=== PATIENT | male | born 1975 | race Caucasian/White ===

== ENCOUNTER 2025-03-23 08:11 | Outpatient (REF) | payer OTHER, SELFPAY ==
--- NOTE | ~2025-03-23 | US_ITS ---
EXAMINATION: US pelvis limited CLINICAL INFORMATION: Right lower quadrant pain for 4 weeks, dull ache, COMPARISON: None available. TECHNIQUE: Grayscale and color Doppler imaging was performed in the right lower quadrant FINDINGS: The appendix is noted just deep to the rectus abdominis musculature in the right lower quadrant. It was noncompressible. Technologist reports sharp pain when compressing over this region. The cross-sectional diameter measured 8-9 mm. No hernia was demonstrated. US/US pelvic limited IMPRESSION: Possible appendicitis: A tubular structure in the right lower quadrant is borderline to mildly enlarged measuring 8-9 mm cross-sectional diameter. It is noncompressible and the patient reported sharp pain when this area was compressed during the ultrasound exam. No hernia was demonstrated in the right lower quadrant. Electronically signed by: Issa Frederick MD 03/23/2025 10:01 AM EDT
--- OUTSIDE RECORDS SUMMARY | 2025-03-23 08:32 | XMS_ITS | Clinical Summary ---
Author Organization [employer] Address [address] [place] [address] Care Team Providers Care Mechanical Design Engineer Name Role Phone Ty Mckinley MD Primary Care Provider [phone] Allergies No known active allergies Medications lisinopriL (Prinivil,Zestri l) 20 mg tabletIndication s:Essential (primary) hypertension TAKE 1 TABLET BY MOUTH 1 (ONE) TIME EACH DAY. 90 tablet 4 Active lisinopriL (Prinivil,Zestri l) 20 mg tabletIndication s:Essential (primary) hypertension TAKE 1 TABLET BY MOUTH 1 TIME EACH DAY. 90 tablet 5 Active metoprolol succinate (Toprol-Xl) 50 mg 24 hr tabletIndication s:Essential (primary) hypertension,PVC 's (premature ventricular contractions) TAKE 1 TABLET BY MOUTH 1 TIME EACH DAY. 90 tablet 5 Active lisinopriL (Prinivil,Zestri l) 20 mg tabletIndication s:Essential (primary) hypertension TAKE 1 TABLET BY MOUTH 1 (ONE) TIME EACH DAY. 90 tablet 5 025 Discontinued metoprolol succinate (Toprol-Xl) 50 mg 24 hr tabletIndication s:Essential (primary) hypertension,PVC 's (premature ventricular contractions) Take 1 tablet (50 mg total) by mouth 1 (one) time each day. 90 tablet 5 025 Discontinued Active Problems Problem Noted Date Diagnosed Date PVC's (premature ventricular contractions) 02/1103/26/2023 Overview (03/26/2023): Last Assessment & Plan: Nearly gone at this time but reduced enough that the patient is quite satisfied with his symptoms we will just leave this dose of the metoprolol alone as it is. I will reevaluate in 4 to 6 months time. Family history of bladder cancer 06/27/2021 Overweight (BMI 25.0-29.9) 05/16/2020 Diverticular disease 10/31/2016 Abnormal results of liver function studies 04/02 Essential (primary) hypertension 04/02/2015 Hyperlipidemia LDL goal <130 04/02/2015 Encounters Date Type Department Care Team Description 03/23/2025 [place] [address] Ty Mckinley MD Essential (primary) hypertension; PVC's (premature ventricular contractions) 03/09/2025 [place] [address] Ty Mckinley MD Essential (primary) hypertension 12/22/[address] [address] Ty Mckinley MD Essential (primary) hypertension; PVC's (premature ventricular contractions) from Last 3 Months Immunizations Immunization Administration Dates Next Due HEPATITIS B, ADULT 01/05/2015 INFLUENZA, RECOMBINANT, QUAD RIVALENT, PRESERVATIVE FREE 06/27/2021,05/16/2020 INFLUENZA, SEASONAL, INJECTABLE 03/29/2014 Influenza (IM) Preservative Free 02/28/2013 Influenza, injectable, quadr ivalent, preservative free 03/26/2023 Pfizer Purple Cap SARS-COV-2 Vaccination 021,10/15/2020,09/21/2020 Tdap 03/26/2023,08/26/2012 Tetanus 11/30/1999 Family History Medical History Relation Name Comments Hypertension Father bladder cancer Father Heart disease Mother Hypertension Mother Thyroid disease Mother Relation Name Status Comments Father Alive Mother Alive Social History Tobacco Use Types Packs/Day Years Used Date Smoking Tobacco: Former Smokeless Tobacco: Never Tobacco Cessation:Counseling Given: Not Answered Alcohol Use Standard Drinks/Week Comments Yes 0 (1 standard drink = 0.6 oz pur e alcohol) AUDIT-C Answer Date Recorded Q1: How often do you have a drink containing alc ohol? Monthly or less 03/26/2023 Q2: How many drinks containi ng alcohol do you have on a typical day when you are drinking? 1 or 2 03/26/2023 Q3: How often do you have si x or more drinks on one occasion? Never 03/26/2023 PHQ-2 Answer Date Recorded Patient Health Questionnaire-2 Score 0 12/14/2024 Exercise Vital Sign Answer Date Recorde d On average, how many days pe r week do you engage in moderate to strenuous exercise (like a brisk walk)? 3 days 09/15/2019 On average, how many minutes do you engage in exercise at this level? 40 min 09/15/2019 PRAPARE - Transportation Answer Date Re corded In the past 12 months, has l ack of transportation kept you from medical appointments or from getting medications? No 03/24/2023 Lack of Transportation (Non-Medical) Not on file 03/24/2023 Housing Stability Vital Sign Answer Rohit e Recorded Unable to Pay for Housing in the Last Year Not o n file 03/24/2023 Number of Places Lived in the Last Year Not on f ile 03/24/2023 In the last 12 months, was t here a time when you did not have a steady place to sleep or slept in a retirement (including now)? No 03/24/2023 Humiliation, Afraid, Rape, and Kick questionnair e Answer Date Recorded Within the last year, have y ou been afraid of your partner or ex-partner? No 12/14/2024 Emotionally Abused Not on file 12/14/2024 Physically Abused Not on file 12/14/2024 Sexually Abused Not on file 12/14/2024 Overall Financial Resource Strain (CARDIA) Answe r Date Recorded How hard is it for you to pa y for the very basics like food, housing, medical care, and heating? Somewhat hard 12/14/2024 Hunger Vital Sign Answer Date Recorded Within the past 12 months, y ou worried that your food would run out before you got the money to buy more. Never true 12/15/19 25 Ran Out of Food in the Last Year Not on file 12/14/2024 PRAPARE - Transportation Answer Date Re corded In the past 12 months, has l ack of transportation kept you from medical appointments or from getting medications? No 12/14/2024 Lack of Transportation (Non-Medical) Not on file 12/14/2024 CAGE-AID Answer Date Recorded Q1: How often do you have a drink containing alc ohol? Monthly or less 03/26/2023 Q2: How many drinks containi ng alcohol do you have on a typical day when you are drinking? 1 or 2 03/26/2023 Q3: How often do you have si x or more drinks on one occasion? Never 03/26/2023 Sex and Gender Information Value Date Recorded Sex Assigned at Not on file Legal Sex Male 12:36 PM EST Gender Identity Not on file Sexual Orientation Not on file Last Filed Vital Signs Vital Sign Reading Time Taken Comments Blood Pressure 130/80 09/23/2023 7:19 AM EDT Pulse 66 09/23/2023 7:19 AM EDT Temperature 36.8 C (98.2 F) 06/27/2021 4:19 PM EST Respiratory Rate 18 09/23/2023 7:19 AM EDT Oxygen Saturation 98% 09/23/2023 7:19 AM EDT Inhaled Oxygen Concentration - - Weight 83.5 kg (184 lb) 09/23/2023 7:19 AM EDT Height 171.5 cm (5' 7.5 ) 03/26/2023 1:44 PM EDT Body Mass Index 28.39 03/26/2023 1:44 PM EDT Plan of Treatment Upcoming Encounters Date Type Department Care Team (Late st Contact Info) Description 06/09/2025 9:30 [place] [address] Ty Mckinley MD [address] [place] [address] cpx Scheduled Orders Name Type Priority Associated Diagnoses Orde r Schedule CBC and differential Lab Routine Encounter for screening and preventative care Essential (primary) hypertension 1 Occurrences starting 11/17/2024 until 11/17/2025 Comprehensive metabolic panel Lab Routine Encounter for screening and preventative care 1 Occurrences starting 11/17/2024 until 11/17/2025 TSH with Reflex to Free T4 Lab Routine Encounter for screening and preventative care Screening for thyroid disorder 1 Occurrences starting 11/17/2024 until 11/17/2025 Lipid Panel with Ratios Lab Routine Encounter for screening and preventative care Hyperlipidemia LDL goal <130 1 Occurrences starting 11/17/2024 until 11/17/2025 Health Maintenance Due Date Last Done Comments CT Colonography 1975 Colonoscopy 1975 Colorectal Cancer Screening 1975 FIT-DNA 1975 FIT 1975 FOBT 1975 Sigmoidoscopy 1975 Annual Physical Exam 03/26/2024 03/26/2023, 06/27/2021, 05/16/2020 COVID-19 Vaccine ( season) 2025 05/22/2021, 10/15/2020, 09/21/2020 Influenza Vaccine (#1) 2025 , 06/27/2021, 05/16/2020, Additional history exists Tdap and Td Vaccines Adult 03/26/2033 03/26/2023, Hepatitis C Screening Completed 06/27/2021 Lipid Panel Discontinued 09/23/2023, 06/02, 05/16/2020, Additional history exists HIB Vaccines Aged Out No longer eligi ble based on patient's age to complete this topic HPV Vaccines (No Doses Required) Completed Hepatitis A Vaccines Aged Out No long er eligible based on patient's age to complete this topic IPV Vaccines Aged Out No longer eligi ble based on patient's age to complete this topic Meningococcal Vaccine Aged Out No veronica martin eligible based on patient's age to complete this topic Pneumococcal Vaccine: Peds (0 to 5 Yrs) and At-Risk Pts (6 to 49 Yrs) Aged Out No longer eligible based on patient's age to complete this topic RSV <20 Months Aged Out No longer teodora gible based on patient's age to complete this topic Procedures Procedure Name Priority Date/Time Associated Diagnosis Comments LIPID PANEL WITH RATIOS Routine 09/23/2023 7:43 AM EDT Well adult exam Hyperlipidemia LDL goal <130 HEPATITIS C ANTIBODY, HIGH RISK SCREENING, W/ RFX TO HCV RNA Routine 06/27/2021 5:03 PM EST Need for hepatitis C screening test from Last 3 Months or Most Recently Relevant to Health Maintenance Results * (ABNORMAL) Lipid Panel (09/23/2023 7:43 AM EDT) Cholesterol 193 <=200 mg/dL 09/23/2023 3:19 PM EDT [facility] Triglycerides 73 <150 mg/dL 09/23/2023 3:19 PM EDT [facility] HDL 42 >40 mg/dL 09/23/2023 3:19 PM EDT [facility] % Total 22 09/23/2023 3:19 PM EDT [facility] LDL Calculated 136(H) <100 mg/dL 09/23/2023 3:19 PM EDT [facility] Cholesterol HDL Ratio 4.6 09/23/2023 3:19 PM EDT [facility] LDL/HDL Ratio 3.2 09/23/2023 3:19 PM EDT [facility] NON HDL CHOLESTEROL 151(H) <130 09/23/2023 3:19 PM EDT [facility] Blood Venous blood / Unknown Venipuncture / Unknown 09/23/2023 7:43 AM EDT 09/23/2023 7:43 AM EDT us Ty Mckinley MD LAB BLOOD ORDERABLES Final Res ult [facility] [id number] [place] [address] * Hepatitis C Antibody, Screening w/ RFX to HCV RNA (06/27/2021 5:03 PM EST) Hep C Antibody, IgG Non-React levon Non-React levon 06/27/2021 8:10 PM EST [facility] Comment: Performed on Siemens Advia Centaur Not infected with HCV, unless recent infection is suspected or other evidence exists to indicate HCV infection. This assay can be affected by patients taking high dose biotin supplements (>5mg/day). An eight hour wait time or washout period is necessary for accurate test results following high doses of biotin Blood Venous blood / Unknown Venipuncture / Unknown 06/27/2021 5:03 PM EST 06/27/2021 5:03 PM EST us Ty Mckinley MD LAB BLOOD ORDERABLES Final Res ult [facility] [id number] [place] [address] from Last 3 Months or Most Recently Relevant to Health Maintenance Insurance [employer] Care Teams Mechanical Design Engineer Relationship Specialty Start Date End Date Ty Mckinley MD [address] [place] [id number] PCP - General 06/06/19
--- OUTSIDE RECORDS SUMMARY | 2025-03-23 08:32 | XMS_ITS | Encounter Summary ---
Author Organization [employer] Address [address] [place] [address] Care Team Providers Care Loss Prevention Leader Name Role Phone Ty Mckinley MD Primary Care Provider [phone] Reason for Visit * Reason Onset Date Comments Med Refill 05/28/2024 Encounter Details Date Type Department Care Team ([facility] st Contact Info) Description 05/28/2024 Refill [facility] Primary Care [place] [phone] Ty Mckinley MD [address] [place] [address] Essential (primary) hypertension; PVC's (premature ventricular contractions) Social History Tobacco Use Types Packs/Day Years Used Date Smoking Tobacco: Former Smokeless Tobacco: Never Alcohol Use Standard Drinks/Week Comments Yes 0 (1 standard drink = 0.6 oz pur e alcohol) Humiliation, Afraid, Rape, and Kick questionnair e Answer Date Recorded Within the last year, have y ou been afraid of your partner or ex-partner? No 03/24/2023 Emotionally Abused Not on file 03/24/2023 Physically Abused Not on file 03/24/2023 Sexually Abused Not on file 03/24/2023 AUDIT-C Answer Date Recorded Q1: How often do you have a drink containing alc ohol? Monthly or less 03/26/2023 Q2: How many drinks containi ng alcohol do you have on a typical day when you are drinking? 1 or 2 03/26/2023 Q3: How often do you have si x or more drinks on one occasion? Never 03/26/2023 Overall Financial Resource Strain (CARDIA) Answe r Date Recorded How hard is it for you to pa y for the very basics like food, housing, medical care, and heating? Somewhat hard 03/24/2023 PHQ-2 Answer Date Recorded Patient Health Questionnaire-2 Score 0 03/26/2023 Exercise Vital Sign Answer Date Recorde d On average, how many days pe r week do you engage in moderate to strenuous exercise (like a brisk walk)? 3 days 09/15/2019 On average, how many minutes do you engage in exercise at this level? 40 min 09/15/2019 Hunger Vital Sign Answer Date Recorded Within the past 12 months, y ou worried that your food would run out before you got the money to buy more. Never true 03/24/20 23 Ran Out of Food in the Last Year Not on file 03/24/2023 PRAPARE - Transportation Answer Date Re corded [...] place to sleep or slept in a long-term (including now)? No 03/24/2023 CAGE-AID Answer Date Recorded Q1: How often [...] on file Sexual Orientation Not on file documented as of this encounter Miscellaneous Notes * Telephone Encounter - Pat Peoples - 06/06/2024 8:17 AM EST Left voicemail third attempt, letter sent. * Telephone Encounter - Pat Peoples - 06/02/2024 8:05 AM EST Left voicemail second attempt. * Telephone Encounter - Pat Peoples - 05/30/2024 8:42 AM EST Left voicemail requesting patient call back to schedule. * Telephone Encounter - Aspen Villa RN - 05/30/2024 7:09 AM EST Refill request, last office visit 09-22, needs an appointment sooner than 12-23, erxd script documented in this encounter Plan of Treatment Upcoming Encounters Date Type Department Care Team (Late st Contact Info) Description 06/09/2025 9:30 [place] [address] Ty Mckinley MD [address] [place] [address] cpx documented as of this encounter Visit Diagnoses Diagnosis Essential (primary) hypertension Unspecified essential hypertension PVC's (premature ventricular contractions) Other premature beats documented in this encounter Additional Health Concerns Assessment Noted Time PHQ-9 Depression Total Score: 0 03/26/20 23 2:25 PM EDT documented as of this encounter Care Teams Loss Prevention Leader Relationship Specialty Start Date End Date Ty Mckinley MD [address] [place] [address] PCP - General 06/06/19 documented as of this encounter
--- OUTSIDE RECORDS SUMMARY | 2025-03-23 08:32 | XMS_ITS | Encounter Summary ---
Author Organization [employer] Address [address] [place] [address] Care Team Providers Care Forestry Patrolman Name Role Phone Ty Mckinley MD Primary Care Provider [phone] Reason for Visit * Reason Comments Med Refill Encounter Details Date Type Department Care Team ([facility] st Contact Info) Description 09/19/2022 Refill [facility] Primary Care [place] [phone] Ty Mckinley MD [address] [place] [address] Essential (primary) hypertension Social History Tobacco Use Types Packs/Day Years Used Date Smoking Tobacco: Former Smokeless Tobacco: Never Alcohol Use Standard Drinks/Week Comments Yes 0 (1 standard drink = 0.6 oz pur e alcohol) AUDIT-C Answer Date Recorded Q1: How often do you have a drink containing alc ohol? Monthly or less 09/14/2019 Q2: How many drinks containi ng alcohol do you have on a typical day when you are drinking? 1 or 2 09/14/2019 Q3: How often do you have si x or more drinks on one occasion? Less than monthly 09/14/2019 PHQ-2 Answer Date Recorded Patient Health Questionnaire-2 Score 0 06/25/2021 Exercise Vital Sign Answer Date Recorde d On average, how many days pe r week do you engage in moderate to strenuous exercise (like a brisk walk)? 3 days 09/15/2019 On average, how many minutes do you engage in exercise at this level? 40 min 09/15/2019 Sex and Gender Information Value Date Recorded Sex Assigned at Not on file Legal Sex Male 12:36 PM EST Gender Identity Not on file Sexual Orientation Not on file documented as of this encounter Miscellaneous Notes * Telephone Encounter - Fabiana Sanchez - 09/22/2022 9:18 AM EDT Left voicemail asking patient to please call back to scheduled med follow up * Telephone Encounter - Aspen Norman LPN - 09/19/2022 5:06 PM EDT PLEASE CALL PT FOR SOONER APPT THEN March. documented in this encounter Plan of Treatment Upcoming Encounters Date Type Department Care Team (Late st Contact Info) Description 06/09/2025 9:30 [place] [address] Ty Mckinley MD [address] [place] [address] cpx documented as of this encounter Visit Diagnoses Diagnosis Essential (primary) hypertension Unspecified essential hypertension documented in this encounter Additional Health Concerns Assessment Noted Time PHQ-9 Depression Total Score: 0 06/25/19 22 2:13 PM EST documented as of this encounter Care Teams Forestry Patrolman Relationship Specialty Start Date End Date Ty Mckinley MD [address] [place] [address] PCP - General 06/06/19 documented as of this encounter
--- OUTSIDE RECORDS SUMMARY | 2025-03-23 08:32 | XMS_ITS | Encounter Summary ---
Author Organization [facility] Address [address] [place] [address] Care Team Providers Care Corner Cutter Machine Operator Name Role Phone Ty Mckinley MD Primary Care Provider [phone] Encounter Details Date Type Department Care Team ([facility] st Contact Info) Description 05/18/2020 Scanned Document [facility] Primary Care [address] [address] Ty Mckinley MD [address] [place], [place] [id number] EKG Social History Tobacco Use Types Packs/Day Years [...] Date Recorded Patient Health Questionnaire-2 Score 0 05/16/2020 Exercise Vital Sign Answer Date Recorde d [...] on file Sexual Orientation Not on file COVID-19 Exposure Response Date Recorded In the last month, have you been in contact with someone who was confirmed or suspected to have Coronavirus / COVID-19? No / Unsure 05/14/2020 1:30 PM EST documented as of this encounter Plan of Treatment Upcoming Encounters Date Type Department Care Team ([facility] st Contact Info) Description 06/09/2025 9:30 [place] [address] Ty Mckinley MD [address] [place], [place] [address] cpx documented as of this encounter Visit Diagnoses Not on filedocumented in this encounter Additional Health Concerns Assessment Noted Time PHQ-9 Depression Total Score: 0 05/16/20 20 9:12 AM EST documented as of this encounter Care Teams Corner Cutter Machine Operator Relationship Specialty Start Date End Date Ty Mckinley MD [address] [place] [address] PCP - General 06/06/19 documented as of this encounter
--- OUTSIDE RECORDS SUMMARY | 2025-03-23 08:32 | XMS_ITS | Encounter Summary ---
Author Organization [employer] [facility] Address [address] [place] [address] Care Team Providers Care Poultry Vaccinator Name Role Phone Ty Mckinley MD Primary Care Provider [phone] Encounter Details Date Type Department Care Team ([facility] st Contact Info) Description 07/31/2020 Scanned Document [facility] Primary Care [address] [address] Ty Mckinley MD [address] [place], [place] [phone] lab customer service Social History Tobacco Use Types Packs/Day Years [...] on file documented as of this encounter Plan of Treatment Upcoming Encounters Date Type Department Care Team (Late st Contact Info) Description 06/09/2025 9:30 AM EST Office Visit [address] [address] Ty Mckinley MD [address] [place] [address] [phone] cpx documented as of this encounter Visit Diagnoses Not on filedocumented in this encounter Additional Health Concerns Assessment Noted Time PHQ-9 Depression Total Score: 0 05/16/20 9:12 AM EST documented as of this encounter Care Teams Poultry Vaccinator Relationship Specialty Start Date End Date Ty Mckinley MD [address] [place] [id number] PCP - General 06/06/19 documented as of this encounter
--- OUTSIDE RECORDS SUMMARY | 2025-03-23 08:32 | XMS_ITS | Encounter Summary ---
Author Organization [employer] Address [address] [place] [address] Care Team Providers Care Licensed Loan Officer Name Role Phone Ty Mckinley MD Primary Care Provider [phone] Reason for Visit * Reason Comments Med Refill Encounter Details Date Type Department Care Team ([facility] Contact Info) Description 03/23/2025 Refill [facility] Primary Care [place] [phone] Ty Mckinley MD [address] [place] [address] Essential (primary) hypertension; PVC's (premature ventricular contractions) [...] Description 06/09/2025 9:30 AM EST Office Visit [address] [address] Ty Mckinley MD [address] [place], [place] [address] cpx documented as of this encounter Visit Diagnoses Diagnosis Essential (primary) hypertension Unspecified essential hypertension PVC's (premature ventricular contractions) Other premature beats documented in this encounter Additional Health Concerns Assessment Noted Time PHQ-9 Depression Total Score: 0 12/15/19 25 9:33 AM EDT documented as of this encounter Care Teams Licensed Loan Officer Relationship Specialty Start Date End Date Ty Mckinley MD [address] [place] [address] PCP - General 06/06/19 documented as of this encounter
--- OUTSIDE RECORDS SUMMARY | 2025-03-23 08:32 | XMS_ITS | Encounter Summary ---
Author Organization [facility] Address [address] [place] [address] Care Team Providers Care Fashion Intern Name Role Phone Ty Mckinley MD Primary Care Provider [phone] Encounter Details Date Type Department Care Team ([facility] st Contact Info) Description 04/14/2023 Scanned Document [facility] Primary Care [address] [address] yT Mckinley MD [address] [place], [place] [phone] Gastro Referral Note 04/13/23 Social History Tobacco Use Types Packs/Day Years [...] Description 06/09/2025 9:30 AM EST Office Visit [facility] [address] [place] [phone] Ty Mckinley MD [address] [place] [address] cpx documented as of this encounter Visit Diagnoses Not on filedocumented in this encounter Additional Health Concerns Assessment Noted Time PHQ-9 Depression Total Score: 0 03/26/20 23 2:25 PM EDT documented as of this encounter Care Teams Fashion Intern Relationship Specialty Start Date End Date Ty Mckinley MD [address] [place] [address] PCP - General 06/06/19 documented as of this encounter
--- OUTSIDE RECORDS SUMMARY | 2025-03-23 08:32 | XMS_ITS | Encounter Summary ---
Author Organization [employer] Address [address] [place] [address] Care Team Providers Care Rehabilitation Case Coordinator Name Role Phone Ty Mckinley MD Primary Care Provider [phone] Reason for Visit * Reason Comments Med Refill Encounter Details Date Type Department Care Team ([facility] Contact Info) Description 05/07/2020 Refill [facility] Primary Care [place] [phone] Jyothi Arellano DO [address] [place] [address] Essential (primary) hypertension Social History Tobacco Use [...] on one occasion? Less than monthly 09/14/2019 Exercise Vital Sign Answer Date Recorde d [...] encounter Miscellaneous Notes * Telephone Encounter - Jyothi Arellano DO - 05/08/2020 1:10 PM EST Noted, thank you! * Telephone Encounter - Isabell Berman - 05/08/2020 1:07 PM EST cpx on 05/16 w/ dr mondragon * Telephone Encounter - Jyothi Arellano DO - 05/08/2020 9:55 AM EST Patient overdue for follow up with pcp, please schedule documented in this encounter Plan of Treatment Upcoming Encounters Date Type Department Care Team (Late st Contact Info) Description 06/09/2025 9:30 [place] [address] Ty Mckinley MD [address] [place] [address] cpx documented as of this encounter Visit Diagnoses Diagnosis Essential (primary) hypertension Unspecified essential hypertension documented in this encounter Care Teams Rehabilitation Case Coordinator Relationship Specialty Start Date End Date Ty Mckinley MD [address] [place] [address] PCP - General 06/06/19 documented as of this encounter
--- OUTSIDE RECORDS SUMMARY | 2025-03-23 08:32 | XMS_ITS | Encounter Summary ---
Author Organization [facility] Address [address] [place] [address] Phone Care Team Providers Care Hearing Therapist Name Role Phone Traci Mckinley MD Primary Care Provider Unavailable Reason for Referral * - Closed Specialty Diagnoses / Procedures Referred By Shantell santiago Referred To Contact Diagnoses Palpitations Procedures MCT (Mobile Cardiac Telemetry) Holger Perez DO Phone: tel: fax: [email or web address] Referral ID Status Reason Start Date Expiration Date Visits Re quested Visits Authorized [id number] Closed 02/14/2022 02/14/2023 1 1 Encounter Details Date Type Department Care Team ([facility] st Contact Info) Description 02/14/2022 Ancillary Orders [facility] [address] [place] [address] [address]rd Floor, [address] [place] [id number] Holger Perez DO [address] [address] [email or web address] Palpitations Social History Tobacco Use Types Packs/Day Years Used Date Smoking Tobacco: Former Sex and Gender Information Value Date Recorded Sex Assigned at Not on file Legal Sex Male 3:05 PM EDT Gender Identity Not on file Sexual Orientation Not on file documented as of this encounter Plan of Treatment Scheduled Orders Name Type Priority Associated Diagnoses Orde r Schedule MCT (Mobile Cardiac Telemetry) Cardiac Monitors Routine Palpitations Expected: 01/06/2022, Expires: 12/30/2022 documented as of this encounter Visit Diagnoses Diagnosis Palpitations documented in this encounter Care Teams Hearing Therapist Relationship Specialty Start Date End Date Traci Mckinley MD [address] [place] [id number] PCP - General Family Medicine 02/11/22 documented as of this encounter Additional Source Comments The information contained in this document represents components of the legal health record. It is not the complete legal health record.[facility]
--- OUTSIDE RECORDS SUMMARY | 2025-03-23 08:33 | XMS_ITS | Encounter Summary ---
Author Organization [employer] Address [address] [place] [address] Care Team Providers Care Naphthalene Operator Helper Name Role Phone Ty Mckinley MD Primary Care Provider [phone] Reason for Visit * Reason Comments Med Refill Encounter Details Date Type Department Care Team ([facility] Contact Info) Description 08/23/2022 Refill [facility] Primary Care [place] [phone] Ty Mciknley MD [address] [place] [address] Essential (primary) hypertension Social History Tobacco Use [...] * Telephone Encounter - Fabiana Sanchez - 09/23/2022 10:40 AM EDT My chart message sent * Telephone Encounter - Fabiana Sanchez - 09/09/2022 12:56 PM EDT Left voicemail asking patient to please call back to schedule CPX. Second attempt. * Telephone Encounter - Fabiana Sanchez - 08/25/2022 9:35 AM EDT Left voicemail asking patient to please call back to schedule CPX * Telephone Encounter - Aspen Norman LPN - 08/25/2022 9:03 AM EDT Please call pt to sched CPX appt needs meds, thanks documented in this encounter Plan of Treatment Upcoming Encounters Date Type Department Care Team (Late st Contact Info) Description 06/09/2025 9:30 [place] [address] Ty Mckinley MD [address] [place] [address] cpx documented as of this encounter Visit Diagnoses Diagnosis Essential (primary) hypertension Unspecified essential hypertension documented in this encounter Additional Health Concerns Assessment Noted Time PHQ-9 Depression Total Score: 0 06/25/19 22 2:13 PM EST documented as of this encounter Care Teams Naphthalene Operator Helper Relationship Specialty Start Date End Date Ty Mckinley MD [address] [place] [address] PCP - General 06/06/19 documented as of this encounter
--- OUTSIDE RECORDS SUMMARY | 2025-03-23 08:33 | XMS_ITS | Encounter Summary ---
Author Organization [facility] Address [address] [address] Phone Care Team Providers Care Environmental Field Office Manager Name Role Phone Pcp, Unknown Primary Care Provider Unavailabl e Traci Mckinley MD Primary Care Provider Unavailable Encounter Details Date Type Department Care Team (Late st Contact Info) Description 12/30/2021 Procedure Pass [facility] [address] [place] [address] Social History Tobacco Use Types Packs/Day Years Used Date Smoking Tobacco: Never Assessed Sex and Gender Information Value Date Recorded Sex Assigned at Not on file Legal Sex Male 3:05 PM EDT Gender Identity Not on file Sexual Orientation Not on file documented as of this encounter Plan of Treatment Not on file documented as of this encounter Visit Diagnoses Not on filedocumented in this encounter Care Teams Environmental Field Office Manager Relationship Specialty Start Date End Date Pcp, Unknown PCP - General 09/12/21 02/10/22 Traci Mckinley MD [address] [place] [phone] PCP - General Family Medicine 02/11/22 documented as of this encounter Additional Source Comments The information contained in this document represents components of the legal health record. It is not the complete legal health record.[facility]
== END 2025-03-23 08:12 | disposition home or self-care (01) ==
LOC: HO.UMASIMG 08:11
PROVIDERS: Visit Provider Physician Assistant
DX: R10.9 Unspecified abdominal pain (principal)
CPT/HCPCS: 76857

== ENCOUNTER → 2025-03-23 09:13 | Outpatient (BNV) | payer OTHER, SELFPAY | PROVIDERS: Visit Provider Radiology Diagnostic Radiology | DX: R10.31 Right lower quadrant pain (principal) | CPT/HCPCS: 76857 ==